=== PATIENT | female | born 1935 | race Caucasian/White ===

== ENCOUNTER 2019-02-11 07:38 | Observation (INO) | payer MEDICARE, OTHER ==
[~2019-02-11] VITALS: Ht 162.6 cm; Wt 68.9 kg
[~2019-02-11 07:38] MED LIST: ALLO300T PO; ASPI-650 PO; ATOR10TA9 PO; CITA20TA9 PO; HYDR-3245 PO
--- NOTE | 2019-02-11 07:56 | NUR ---
PATIENT BROUGHT BACK FROM TRIAGE WITH CHIEF COMPLAINT OF UPPER ABDOMINAL PAIN STARTING YESTERDAY EVENING. PAIN DOES CAUSE NAUSEA HOWEVER NO VOMITING, CP, DIAHRREA OR SOB. THE PATIENT IS ALERT & ORIENTED.
[2019-02-11] MEDS ORDERED: ONDANSETRON 2MG/ML, 2ML ONE (08:23)
[2019-02-11] MEDS ORDERED: MORPHINE SULFATE 4 MG/ML, 1ML ONE ×2 (08:24→11:22)
[2019-02-11] MEDS ORDERED: FAMOTIDINE 20 MG/2 ML ONE (08:24)
[2019-02-11] MEDS ORDERED: FAMOTIDINE 20 MG/2 ML IVPush ONE (08:30)
[2019-02-11] MEDS ORDERED: SODIUM CHLORIDE FLUSH 10ML SYR IVF ONE (08:30)
[2019-02-11] MEDS ORDERED: ONDANSETRON 2MG/ML, 2ML IVPush ONE (08:30)
[2019-02-11] MEDS: MORPHINE SULFATE 4 MG/ML, 1ML IVPush PRN ×2 (08:30→11:25)
--- NOTE | 2019-02-11 08:34 | NUR ---
ULTRASOUND AT BEDSIDE
[2019-02-11 08:47] LABS: BASOPHILS # (AUTO) 0.01 x10^3/uL (0-0.1); BASOPHILS % (AUTO) 0 % (0-1); EOSINOPHILS # (AUTO) 0.04 x10^3/uL (0-0.4); EOSINOPHILS % (AUTO) 1 % (1-7); LYMPHOCYTES # (AUTO) 1.22 x10^3/uL (1-3.4); LYMPHOCYTES % (AUTO) 20 % (22-44); MD NO; MEAN CORPUSCULAR HEMOGLOBIN 33.7 pg (27.0-34.8); MEAN CORPUSCULAR HGB CONC 32.5 g/dL (32.4-35.8); MEAN CORPUSCULAR VOLUME 103.8 fL (80-100); MEAN PLATELET VOLUME 9.1 fL (7.4-10.4); MONOCYTES # (AUTO) 0.78 x10^3/uL (0.2-0.8); MONOCYTES % (AUTO) 13 % (2-9); NEUTROPHILS # (AUTO) 4.14 x10^3/uL (1.8-6.8); NEUTROPHILS % (AUTO) 67 % (42-75); PLATELET COUNT 230 x10^3/uL (130-400); RED BLOOD COUNT 3.62 x10^6/uL (3.82-5.3); RED CELL DISTRIBUTION WIDTH 15.2 % (9.6-15.2)
[2019-02-11 08:57] LABS: ALBUMIN 3.7 g/dL (3.4-5.0); ANION GAP 6 mmol/L (5-15); CALCIUM 8.3 mg/dL (8.5-10.1); CHLORIDE 106 mmol/L (98-107)
--- NOTE | 2019-02-11 08:58 | NUR ---
PATIENT TO XRAY
[2019-02-11 09:03] LABS: ALANINE AMINOTRANSFERASE 19 U/L (12-78); ALKALINE PHOSPHATASE 66 U/L (45-117); BILIRUBIN,TOTAL 0.4 mg/dL (0.2-1.0); CREATININE 0.95 mg/dL (0.55-1.02); TOTAL PROTEIN 7.4 g/dL (6.4-8.2); TROPONIN I < 0.015 ng/mL (0.000-0.045)
[2019-02-11 09:04] LABS: MICROSCOPIC INDICATED
[2019-02-11 09:14] LABS: CULTURE INDICATED? YES
--- NOTE | 2019-02-11 09:58 | NUR ---
PATIENT RESTING IN BED. CALL LIGHT IN REACH. ERMD LAW AT BEDSIDE TO UPDATE ON POC
[2019-02-11 10:13] LABS: MICROSCOPIC INDICATED
[2019-02-11] MEDS ORDERED: OMNIPAQUE 350 MG/ML, 100ML BOTTLE ONE (10:19)
[2019-02-11 10:27] LABS: CULTURE INDICATED? YES
--- NOTE | 2019-02-11 10:41 | NUR ---
UP WITH STAND BY ASSIST TO BATHROOM
--- NOTE | 2019-02-11 11:25 | NUR ---
MEDICATED FOR PAIN, PT RESTING IN BED
--- NOTE | 2019-02-11 12:32 | NUR ---
REPORT CALLED TO [facility]. PATIENT UPDATED ON POC. PATIENTS SISTER AT BEDSIDE.
[2019-02-11] MEDS ORDERED: ACETAMINOPHEN 325 MG TABLET PO PRN (13:00)
[2019-02-11] MEDS ORDERED: MAALOX/HYOSCYAMINE/LIDOCAINE 45 ML BTL PO ONE (13:00)
[2019-02-11] MEDS ORDERED: POLYETHYLENE GLYCOL 17 GM PACKET PO PRN (13:00)
[2019-02-11] MEDS ORDERED: METOCLOPRAMIDE 5 MG/ML, 2ML IVPush PRN (13:00)
[2019-02-11] MEDS ORDERED: ENALAPRILAT 1.25 MG/ML, 2ML IVPush PRN (13:00)
[2019-02-11] MEDS ORDERED: DOCUSATE 100 MG CAPSULE PO PRN (13:00)
[2019-02-11] MEDS ORDERED: PROMETHAZINE 25 MG/ML, 1ML IM PRN (13:00)
[2019-02-11 13:05] VITALS: BP 190/88
[2019-02-11] MEDS: HYDROcodone/APAP 10/325 MG TABLET PO PRN (16:22)
[2019-02-11] MEDS: HEPARIN 5,000 UNITS/ML, 1ML SQ SCH (16:22)
[2019-02-11 19:09] VITALS: BP 182/77
[2019-02-11] MEDS ORDERED: ASPIRIN 325 MG TABLET EC PO SCH (21:00)
[2019-02-11] MEDS ORDERED: ATORVASTATIN 10 MG TABLET PO SCH (21:00)
[2019-02-12 00:28] VITALS: BP 177/77
[2019-02-12] MEDS: HEPARIN 5,000 UNITS/ML, 1ML SQ SCH ×2 (01:13→09:03)
[2019-02-12 05:41] LABS: MEAN CORPUSCULAR HEMOGLOBIN 34.5 pg (27.0-34.8); MEAN CORPUSCULAR HGB CONC 32.9 g/dL (32.4-35.8); MEAN CORPUSCULAR VOLUME 104.6 fL (80-100); MEAN PLATELET VOLUME 8.9 fL (7.4-10.4); PLATELET COUNT 263 x10^3/uL (130-400); RED BLOOD COUNT 3.95 x10^6/uL (3.82-5.3); RED CELL DISTRIBUTION WIDTH 15.1 % (9.6-15.2)
[2019-02-12 05:49] LABS: CHLORIDE 101 mmol/L (98-107)
[2019-02-12 05:53] LABS: ALANINE AMINOTRANSFERASE 25 U/L (12-78); ALBUMIN 3.8 g/dL (3.4-5.0); ALKALINE PHOSPHATASE 69 U/L (45-117); ANION GAP 7 mmol/L (5-15); BILIRUBIN,TOTAL 0.7 mg/dL (0.2-1.0); CALCIUM 8.7 mg/dL (8.5-10.1); CREATININE 0.94 mg/dL (0.55-1.02); TOTAL PROTEIN 7.8 g/dL (6.4-8.2)
[2019-02-12 05:59] LABS: BASOPHILS # (AUTO) 0.04 x10^3/uL (0-0.1); BASOPHILS % (AUTO) 0 % (0-1); EOSINOPHILS % (AUTO) 0 % (1-7); LYMPHOCYTES # (AUTO) 0.97 x10^3/uL (1-3.4); LYMPHOCYTES % (AUTO) 7 % (22-44); MD SCAN; MONOCYTES # (AUTO) 1.89 x10^3/uL (0.2-0.8); MONOCYTES % (AUTO) 14 % (2-9); NEUTROPHILS # (AUTO) 10.92 x10^3/uL (1.8-6.8); NEUTROPHILS % (AUTO) 79 % (42-75)
[2019-02-12] MEDS: HYDROcodone/APAP 10/325 MG TABLET PO PRN (06:29)
[2019-02-12 06:52] VITALS: BP 150/74
[2019-02-12] MEDS ORDERED: PANTOPROZOLE 40MG TABLET PO SCH (07:30)
[2019-02-12] MEDS ORDERED: ASPIRIN 325 MG TABLET EC PO SCH (09:00)
[2019-02-12] MEDS ORDERED: ALLOPURINOL 300 MG TABLET PO SCH (09:00)
[2019-02-12] MEDS ORDERED: LOSARTAN 25MG TABLET PO SCH (09:00)
[2019-02-12] MEDS ORDERED: CITALOPRAM 20 MG TABLET PO SCH (09:00)
[2019-02-12] MEDS ORDERED: LOSA25TA25 PO (12:06)
[2019-02-12] MEDS ORDERED: PANT40TA5 PO (12:06)
== END 2019-02-12 16:05 | disposition home or self-care (01) ==
LOC: ED 07:54 → INTOOBSV 11:44 → EDIP 11:44 → 3N 13:02 → DCLOUNGE 02-12 15:48
PROVIDERS: ADMIT Family Medicine; ATTEND Internal Medicine
DX: K80.20 Calculus of gallbladder without cholecystitis without obstruction (principal); R10.13 Epigastric pain; R10.11 Right upper quadrant pain; I10 Essential (primary) hypertension; F32.9 Major depressive disorder, single episode, unspecified; E78.5 Hyperlipidemia, unspecified; G89.29 Other chronic pain; M10.9 Gout, unspecified; D72.829 Elevated white blood cell count, unspecified; R82.71 Bacteriuria
CPT/HCPCS: 36415; 74021; 74177; 76700; 80053; 81001; 83605; 83690; 83735; 83880; 84484; 85025; 87077; 87086; 87186; 93005; 93306; 96374; 96375; 96376; 99284; G0378; J1644; J2270; J2405; J3490; Q9967

== ENCOUNTER 2019-09-22 16:38 | Emergency (ER) | payer MEDICARE ==
[~2019-09-22] VITALS: Ht 162.6 cm; Wt 71.0 kg
[~2019-09-22 16:38] MED LIST changes: +LOSA25TA25 PO; +PANT40TA5 PO
[2019-09-22] MEDS ORDERED: LIDOCAINE-MPF 1%, 5ML ONE (17:02)
--- NOTE | 2019-09-22 17:19 | NUR ---
TASK RN: PT PRESENTS SP MECHANICAL GLF WITH LACERATION OVER BRIDGE OF NOSE AND LOWER LIP, DIFFUSE L CHEEK/EYE SWELLING. PT DENIES CP OR DIZZINESS PRECIPITATING FALL "I JUST TRIPPED TAKING OUT THE TRASH". PT A&OX4, DENIES NAUSEA/MIDLINE BACK OR NECK PAIN/LOC. GROSS NEURO INTACT. HYPERTENSIVE ON MONITOR WO HISTORY OF HTN, DENIES GERARD/CP AT THIS TIME. BP/SPO2 MONITOR IN PLACE. FAMILY AT BEDSIDE.
[2019-09-22] MEDS ORDERED: LIDOCAINE 1%, 10ML INFIL ONE (18:00)
--- NOTE | 2019-09-22 18:02 | NUR ---
WOUNDS CLEANSED PER EMILE HACKETT BS FOR SUTURING.
[2019-09-22] MEDS ORDERED: NEOSPORIN OINT. PKT 1 PACKET ONE (18:34)
[2019-09-22 19:31] VITALS: BP 173/79
--- NOTE | 2019-09-22 19:44 | NUR ---
BACITRACIN APPLIED TO FACIAL WOUNDS. BANDAID APPLIED TO CHEEK WOUND. PT REFUSED BANDAID FOR NOSE LAC.
== END 2019-09-22 19:48 | disposition home or self-care (01) ==
LOC: ED 18:34
DX: S01.21XA Laceration without foreign body of nose, initial encounter (principal); S01.511A Laceration without foreign body of lip, initial encounter; S09.90XA Unspecified injury of head, initial encounter; I10 Essential (primary) hypertension; E78.00 Pure hypercholesterolemia, unspecified; M10.9 Gout, unspecified; Z90.710 Acquired absence of both cervix and uterus; W01.0XXA Fall on same level from slipping, tripping and stumbling without subsequent striking against object, initial encounter; Y93.89 Activity, other specified; Y92.098 Other place in other non-institutional residence as the place of occurrence of the external cause; Y99.8 Other external cause status
CPT/HCPCS: 12011; 12051; 70450; 70486; 99285; J3490